=== PATIENT | female | born 1945 | race Caucasian/White ===

== ENCOUNTER 2016-09-10 05:20 | Emergency (ER) | payer MEDICARE, MEDICAID ==
[2016-09-10] MEDS ORDERED: Ondansetron INJ* 2 MG/ML VIAL IV ONE (05:48)
[2016-09-10] MEDS ORDERED: NS 0.9% 1000 ML* 1,000 ML IV ONE (05:48)
[2016-09-10 06:05] LABS: Hematocrit 44 % (35-47); Hemoglobin 14.6 g/dl (12.0-16.0); Mean Corpuscular HGB Conc 33 g/dl (31-36); Mean Corpuscular Hemoglobin 31 pg (27-31); Mean Corpuscular Volume 93 fL (80-97); Mean Platelet Volume 10 um3 (7.4-10.4); Red Blood Count 4.76 10^6/ul (4.0-5.4); Red Cell Distribution Width 13 % (10.5-15); White Blood Count 7.1 10^3/ul (3.5-10.8)
[2016-09-10 06:17] LABS: Albumin 4.1 g/dL (3.2-5.2); C Reactive Protein 21.96 mg/L (< 5.00); Calcium 9.9 mg/dL (8.6-10.3); EGFR African American 70.1 (>60); EGFR Non-African American 54.5 (>60); Globulin 3.4 g/dL (2-4); Magnesium 1.1 mg/dL (1.9-2.7); Total Bilirubin 1.1 mg/dL (0.2-1.0); Total Protein 7.5 g/dL (6.4-8.9)
[2016-09-10] MEDS ORDERED: Magnesium Sulfate 2 GM IV* 2 GM/50 ML BAG IVPB ONE (06:19)
--- NOTE | 2016-09-10 06:33 | ED ---
dominga Naidu Timothy, scribed for Alo Worrell MD on 09/10/16 at 0535 . HPI Cardiac - HPI Summary HPI Summary: Marta Flores is a 71 yo female presenting to [facility] with high blood pressure (208/ 100) and vomiting since 2330 09/09/16. She states she only feels nauseous when she is diaphoretic. She had diarrhea 1 week ago. She denies any current pain. She was admistered metoprolol at 0200 this morning. Her MHx includes CVA 2004, hemiplegia, hemiparesis, DMII, HTN, HLD - History of Current Complaint Stated Complaint: HIGH BLOOD PRESSURE/VOMITING Time Seen by Provider: 09/10/16 05:45 Hx Obtained From: Patient Onset/Duration: Started Hours Ago, Still Present Time of Onset: 23:30 - 09/09/16 Timing: Constant Initial Severity: Moderate Current Severity: Moderate Pain Intensity: 0 Pain Scale Used: 0-10 Numeric Associated Signs and Symptoms: Positive: Diaphoresis, Vomiting, Other: - high blood pressure, diarrhea 1 week ago - Allergy/Home Medications Allergies/Adverse Reactions: Allergies Allergy/AdvReac Type Severity Reaction Status Date / Time Rosuvastatin [From Crestor] Allergy Muscle Ache Verified 09/10/16 05:29 PMH/Surg Hx/FS Hx/Imm Hx Endocrine/Hematology History: Reports: Hx Diabetes - II Cardiovascular History: Reports: Hx Hypercholesterolemia, Hx Hypertension Neurological History: Reports: Hx CVA, Other Neuro Impairments/Disorders - hemiplegia, hemiparesis - Cancer History Hx Chemotherapy: No Hx Radiation Therapy: No Infectious Disease History: No Infectious Disease History: Denies: Traveled Outside the [place] in Last 30 Days - Family History Known Family History: Positive: Cardiac Disease, Hypertension, Diabetes Review of Systems Positive: Skin Diaphoresis Eyes: Negative ENT: Negative Cardiovascular: Other - high blood pressure Respiratory: Negative Positive: Vomiting, Diarrhea - 1 week ago resolved, Nausea Genitourinary: Negative Musculoskeletal: Negative Skin: Negative Neurological: Negative Psychological: Normal All Other Systems Reviewed And Are Negative: Yes Physical Exam Triage Information Reviewed: Yes Vital Signs On Initial Exam: Initial Vitals Temp Pulse Resp BP Pulse Ox 99.5 F 90 16 208/100 96 09/10/16 05:20 09/10/16 05:20 09/10/16 05:20 09/10/16 05:20 09/10/16 05:20 Vital Signs Reviewed: Yes Appearance: Positive: Well-Appearing, No Pain Distress Skin: Positive: Warm Head/Face: Positive: Normal Head/Face Inspection Eyes: Positive: JULIANNA ENT: Positive: Hearing grossly normal Neck: Positive: Supple Respiratory/Lung Sounds: Positive: Breath Sounds Present Cardiovascular: Positive: RRR Abdomen Description: Positive: Nontender, Soft Bowel Sounds: Positive: Present Musculoskeletal: Positive: Strength/ROM Intact Neurological: Positive: Alert, Oriented to Person Place, Time, Normal Gait Psychiatric: Positive: Normal Diagnostics - Vital Signs Vital Signs Temp Pulse Resp BP Pulse Ox 09/10/16 05:20 99.5 F 90 16 208/100 96 - Laboratory Lab Results: Lab Results 09/10/16 09/10/16 09/10/16 Range/Units 05:45 05:45 05:45 WBC 7.1 (3.5-10.8) 10^3/ul RBC 4.76 (4.0-5.4) 10^6/ul Hgb 14.6 (12.0-16.0) g/dl Hct 44 (35-47) % MCV 93 (80-97) fL MCH 31 (27-31) pg MCHC 33 (31-36) g/dl RDW 13 (10.5-15) % Plt Count 272 (150-450) 10^3/ul MPV 10 (7.4-10.4) um3 Neut % (Auto) 93.3 H (38-83) % Lymph % (Auto) 5.1 L (25-47) % [place] % (Auto) 0.7 L (1-9) % Eos % (Auto) 0 (0-6) % Baso % (Auto) 0.9 (0-2) % Absolute Neuts (auto) 6.6 (1.5-7.7) 10^3/ul Absolute Lymphs (auto) 0.4 L (1.0-4.8) 10^3/ul Absolute Monos (auto) 0 (0-0.8) 10^3/ul Absolute Eos (auto) 0 (0-0.6) 10^3/ul Absolute Basos (auto) 0.1 (0-0.2) 10^3/ul Absolute Nucleated RBC 0.01 10^3/ul Nucleated RBC % 0.1 Sodium 137 (133-145) mmol/L Potassium 4.0 (3.5-5.0) mmol/L Chloride 102 (101-111) mmol/L Carbon Dioxide 19 L (22-32) mmol/L Anion Gap 16 H (2-11) mmol/L BUN 20 (6-24) mg/dL Creatinine 1.00 H (0.51-0.95) mg/dL Est GFR ( Amer) 70.1 (>60) Est GFR (Non-Af Amer) 54.5 (>60) BUN/Creatinine Ratio 20.0 (8-20) Glucose 290 H (70-100) mg/dL Lactic Acid 7.1 H* (0.5-2.0) mmol/L Calcium 9.9 (8.6-10.3) mg/dL Magnesium 1.1 L (1.9-2.7) mg/dL Total Bilirubin 1.10 H (0.2-1.0) mg/dL AST 18 (13-39) U/L ALT 19 (7-52) U/L Alkaline Phosphatase 120 H (34-104) U/L C-Reactive Protein 21.96 H (< 5.00) mg/L Total Protein 7.5 (6.4-8.9) g/dL Albumin 4.1 (3.2-5.2) g/dL Globulin 3.4 (2-4) g/dL Albumin/Globulin Ratio 1.2 (1-3) Lipase 28 (11.0-82.0) U/L Result Diagrams: 09/10/16 05:45 09/10/16 05:45 Lab Statement: Any lab studies that have been ordered have been reviewed, and results considered in the medical decision making process. - EKG 0559 Cardiac Rate: Tachycardia - 105 BPM EKG Interpretation: Sinus tachycardia @ 105 BPM Disposition - Course Assessment/Plan: Marta Flores is a 71 yo female presenting to [facility] with BP of 208/100 and vomiting since 222909/09/16. In the ED course she received IV fluids , magneisum sulfate, and zofran for nausea control. Her EKG suggests tachycardia. She will be signed out to Dr. Pearson pending further lab results. Discharge - Discharge Plan Condition: Stable Disposition: OTHER Discharge Disposition Comment: signed out to Dr. Pearson pending further lab results. The documentation as recorded by the dominga sanderson Timothy accurately reflects the service I personally performed and the decisions made by me, Alo Worrell MD.
[2016-09-10] MEDS ORDERED: Losartan TAB* 25 MG PO ONE (08:07)
--- NOTE | 2016-09-10 10:04 | RAD ---
HISTORY: Shortness of breath COMPARISONS: November 10, 2008 VIEWS:1: Single frontal portable view of the chest at 9:45 AM FINDINGS: LINES AND TUBES: None. CARDIOMEDIASTINAL SILHOUETTE: The cardiomediastinal silhouette is normal for portable technique. PLEURA: The costophrenic angles are sharp. No pleural abnormalities are noted. LUNG PARENCHYMA: The lungs are clear. ABDOMEN: The upper abdomen is clear. There is no subphrenic gas. BONES AND SOFT TISSUES: There is remote posttraumatic change to the left hemithorax. IMPRESSION: NO ACTIVE CARDIOPULMONARY DISEASE.
[2016-09-10 11:37] VITALS: BP 124/73
--- NOTE | 2016-09-10 14:43 | CONS ---
HOSPITAL MEDICINE CONSULTATION: DATE OF CONSULTATION: 09/10/16 - EMERGENCY DEPT ATTENDING PHYSICIAN: Dr. Bessy Spicer (dictation provided by Irene Conteh NP) CHIEF COMPLAINT: Nausea and vomiting. HISTORY OF PRESENT ILLNESS: Ms. Flores is a 71-year-old female with a past medical history of CVA with left-sided hemiplegia, type 2 diabetes which is insulin dependent, and hypertension who presents to the hospital with report of [facility]. Ms. Flores states she has been in her normal state of health with no acute complaints. She was feeling well yesterday during the day; however, at about 11 o'clock last night, she had developed sudden onset of nausea and vomiting. She ultimately vomited three times. She is DNR/DNI and is comfort care only measures at the [facility], however, her MOLST form does indicate that she would like to be sent to the hospital if her symptoms are uncontrolled and therefore she was sent to the emergency room for evaluation. In the emergency room, Ms. Flores's lab showed that she had a lactic acidosis of 7.1. She had no leukocytosis, no fever. Her vitals are stable. Her CRP was only 21.96. The patient has had no further nausea and vomiting since arrival. She was given one liter of fluids and her lactic acid was rechecked and found to be 4.3. The patient is feeling well now; however, it was noted that the patient had a new O2 requirement. The patient's O2 saturation was noted to be 89% on room air. She had responded well to 2 L nasal cannula. The patient denies any cough, chest pain, shortness of breath. PAST MEDICAL HISTORY: 1. Left hemiplegia secondary to CVA. 2. Type 2 diabetes, insulin dependent. 3. Hypertension. 4. Hyperlipidemia. MEDICATIONS: I do not have dosages, but medications are: 1. Tylenol. 2. Levemir insulin. 3. Lipitor. 4. Loratadine. 5. Losartan. 6. Plavix. 7. Tizanidine. 8. Voltaren. ALLERGIES: To ROSUVASTATIN. FAMILY HISTORY: Reviewed and noncontributory. SOCIAL HISTORY: No report of alcohol, tobacco, or drug use. The patient lives at [facility]. REVIEW OF SYSTEMS: A 14-point review of systems was completed with Ms. Flores and all those not mentioned above were negative. PHYSICAL EXAMINATION: Vital Signs: Temperature 99.5, heart rate 90, respiratory rate 26, O2 saturation 94% on room air, blood pressure 148/73. General: Ms. Flores is sitting in the bed. She is in no acute distress. She is calm and cooperative with my exam. Neuro: She is alert. She is oriented x3. She has strong movement at the right upper and lower extremity, none noted at the left upper and lower extremity. Face is symmetrical. Heart: S1, S2. No murmur, rub, or gallop and regular. Lungs have scattered inspiratory crackles but good aeration, no accessory muscle use. The abdomen is soft, nontender with bowel sounds positive x4. Extremities: No cyanosis or edema. Skin is intact. DIAGNOSTIC STUDIES/LAB DATA: Sodium 137, potassium 4.0, chloride 102, serum bicarbonate 19, BUN 20, creatinine 1.0, glucose 290, lactic acid 7.1 at 5:45 a.m., rechecked at 8:28 a.m. and was 4.3. CRP is 21.96. Chest x-ray shows no acute cardiopulmonary process. EKG shows sinus tachycardia with heart rate of approximately 100. ASSESSMENT: Ms. Flores is a 71-year-old female with a past medical history of diabetes, left hemiplegia after cerebrovascular accident, and hypertension who presents today to the hospital with sudden onset of nausea, vomiting, and diarrhea. Our recommendations are as follows: 1. Nausea and vomiting: The patient is asymptomatic now and feeling well. She has had no further nausea and vomiting since arrival. She did have an elevated lactic acid, but this has improved with IV hydration. 2. Hypoxia: The patient was noted to need 2 L nasal cannula here in the emergency room today. I had discussed with the patient that she does continue to want to be comfort care. She says that she noticed there is no difference with the oxygen on or off. I therefore think there is no need for oxygen for her as long as she remains comfortable without it. No further workup indicated. 3. Diabetes: Continue home medications. 4. Hypertension: Continue home medications. 5. Disposition: I recommended to that patient be discharged back to [facility] to continue comfort care now that she is feeling better. TIME SPENT: Approximately 45 minutes were spent in the consultation of this patient, more than half time spent with her at the bedside reviewing the events leading up to this hospitalization, performing the physical examination, and reviewing the plan of care. IRENE CONTEH NP CC: Providers at [facility]* [id number]/CPS #: [id number] SOL
--- NOTE | 2016-09-11 09:32 | ED ---
I, Mian Bowers, scribed for Sourav Pearson MD on 09/10/16 at 1032 . Progress - Progress Note Progress Note: Signout pt from Dr. Worrell. Pending disposition. Ms. Flores felt better after treatment and W/U here. I was worried because she could not keep her SPO2 above 90% here without O2 and her RR was often in the 30 's. The hospitalist consulted on her and she did not want O2 at the [facility] and wanted to go back so she was D/C'd in guarded condition with a diagnosis of vomiting and diarrhea. Course/Dx - Diagnoses Provider Diagnoses: Vomiting, Diarrhea - Provider Notifications Discussed Care Of Patient With: Bessy Spicer - Dr. Spicer (hospitalist) at 1031. The documentation as recorded by the Robinson sanderson Benjamin accurately reflects the service I personally performed and the decisions made by me, Sourav Pearson MD.
== END 2016-09-10 13:15 ==
LOC: ED 05:20
DX: R11.10 Vomiting, unspecified (principal); R19.7 Diarrhea, unspecified; I10 Essential (primary) hypertension; E11.9 Type 2 diabetes mellitus without complications; E78.00 Pure hypercholesterolemia, unspecified; Z86.73 Personal history of transient ischemic attack (TIA), and cerebral infarction without residual deficits; Z88.8 Allergy status to other drugs, medicaments and biological substances
CPT/HCPCS: 36415; 71010; 80053; 83605; 83690; 83735; 85025; 86140; 93005; 96361; 96365; 96375; 99282; A9270-GY; J2405

== ENCOUNTER 2016-09-13 16:29 | Emergency (ER) | payer MEDICARE, OTHER ==
[2016-09-13] MEDS ORDERED: NS 0.9% 1000 ML* 2,000 ML IV ONE (16:54)
[2016-09-13] MEDS ORDERED: Albuterol/Ipratropium NEB.SOL* Albuterol 2.5 MG/Ipratropium 0.5 MG 3 ML INH ONE (16:54)
[2016-09-13 17:55] VITALS: BP 39/23
--- NOTE | 2016-09-13 18:49 | ED ---
Janet Naidu Alfonso, scribed for Roshan Keller MD on 09/13/16 at 1654 . Shortness of Breath - HPI Summary HPI Summary: This patient is a 71 y.o. F BIBA with [facility] presenting with severe SOB since waking up this morning. She reports chills, sweating and vomiting yesterday. She denies coughing, wheezing, and chest pain. PMHx includes diabetes , HTN, HLD, and pneumonia. No PMHx of COPD. DNR and DNI on record reviewed with patient, and she confirms. - History of Current Complaint Chief Complaint: EDShortnessOfBreath Time Seen by Provider: 09/13/16 16:40 Hx Obtained From: Patient Onset/Duration: Gradual Onset, Lasting Hours - Since awaking, Still Present Current Severity: Severe Dyspnea At: Rest - Allergy/Home Medications Allergies/Adverse Reactions: Allergies Allergy/AdvReac Type Severity Reaction Status Date / Time Rosuvastatin [From Crestor] Allergy Muscle Ache Verified 09/10/16 05:29 PMH/Surg Hx/FS Hx/Imm Hx Endocrine/Hematology History: Reports: Hx Diabetes - II Cardiovascular History: Reports: Hx Hypercholesterolemia, Hx Hypertension Neurological History: Reports: Hx CVA, Other Neuro Impairments/Disorders - hemiplegia, hemiparesis - Cancer History Hx Chemotherapy: No Hx Radiation Therapy: No Infectious Disease History: Denies: Traveled Outside the [place] in Last 30 Days - Family History Known Family History: Positive: Cardiac Disease, Hypertension, Diabetes - Social History Alcohol Use: None Substance Use Type: Reports: None Smoking Status (MU): Never Smoked Tobacco Review of Systems Positive: Chills, Skin Diaphoresis Negative: Chest Pain Positive: Shortness Of Breath. Negative: Cough, Other - Wheezing Positive: Vomiting All Other Systems Reviewed And Are Negative: Yes Physical Exam - Summary Physical Exam Summary: The patient is well-nourished in no acute distress and in no acute pain. The skin is warm and dry and skin color reflects adequate perfusion. HEENT: The head is normocephalic and atraumatic. The pupils are equal and reactive. The conjunctivae are clear and without drainage. Nares are patent and without drainage. Mouth reveals dry mucous membranes and the throat is without erythema and exudate. The external ears are intact. The ear canals are patent and without drainage. The tympanic membranes are intact. Neck is supple with full range of motion and non-tender. There are no carotid bruits. There is no neck vein distension. Respiratory: Chest is non-tender. Lungs are clear to auscultation and breath sounds are symmetrical and equal. Trunk is mottle. Cardiovascular: Hear is regular rate and rhythm. There is no murmur or rub auscultated. There is no peripheral edema and pulses are symmetrical and equal. 3 second capillary refills. Abdomen: The abdomen is obese soft and non-tender. There are normal bowel sounds heard in all four quadrants and there is no organomegaly palpated. Musculoskeletal: There is no back pain noted. Extremities are non-tender with full range of motion. There is good capillary refill. There is no peripheral edema or calf tenderness elicited. Neurological: Patient is alert and oriented to person, place and time. The patient has symmetrical motor strength in all four extremities. Cranial nerves are grossly intact. Deep tendon reflexes are symmetrical and equal in all four extremities. Psychiatric: The patient has an appropriate affect and does not exhibit any anxiety or depression. Triage Information Reviewed: Yes Vital Signs On Initial Exam: Initial Vitals Temp Pulse Resp BP Pulse Ox 96.9 F 101 40 134/115 84 09/13/16 16:43 09/13/16 16:43 09/13/16 16:43 09/13/16 16:43 09/13/16 16:43 Vital Signs Reviewed: Yes Diagnostics - Vital Signs Vital Signs Temp Pulse Resp BP Pulse Ox 09/13/16 17:07 40 19 39/23 83 09/13/16 17:00 27 09/13/16 16:49 65 30 60 09/13/16 16:45 96.9 F 101 40 134/115 84 09/13/16 16:43 96.9 F 101 40 134/115 84 - Laboratory Lab Statement: Any lab studies that have been ordered have been reviewed, and results considered in the medical decision making process. - EKG 1645 EKG Rhythm: Sinus Rhythm EKG Interpretation: Poor R wave progression, Old inferior wall [place] EKG Comparison: No Significant Change Re-Evaluation - Re-Evaluation First Eval Re-Evaluation Time: 17:09 - DNR, DNI reconfirmed with the patient. Patient became apneic on 2 liters of O2 and become asystolic at 17:15 Change: Worse Comment: DNR, DNI reconfirmed with the patient. Patient became apneic on Vapotherm. pt become less responsive. pt's heart rate, respiratoy rate and blood pressure decreased and with the pt becoming asystolic at 17:15. pt had no pulse. heart sound were not present. pt had cyanosis of her extremities. pt was pronounced at 17:15. Course/Dx - Course Assessment/Plan: Pt came in with SOB since this morning. DNR, DNI reconfirmed with the patient. PMHx of diabetes, HLD, HTN. Upon reexamination, pt was noted with mottled trunck. At 17:15 patient was noted apneic and asystolic on 2 liter O2, and pronounced . [employer] has been consulted-Dr. Singh. the pt was released to the [facility] [place]. certificate was signed with cause of as an acute myocardial infarct. Tawana Bhatti, pt's daughter, was notified at . Explained of mother. She specified [facility] as her preferred service home. pt was seen in the ED on September 10, 2016. pt had hospitalist consult and was discherged to home. - Diagnoses Differential Diagnosis/HQI/PQRI: Positive: IL, Pneumonia, Pulmonary Embolism, Other - dm, hypertension, cva, obesity Provider Diagnoses: Acute respiratory distress, due to respiratory failure - Physician Notifications Discussed Care of Patient With: Alok Singh - Notification of . certification will be signed. Time Discussed With Above Provider: 17:25 - Critical Care Time Critical Care Time: 30-74 min - 30 minutes Discharge - Discharge Plan Condition: Disposition: Referrals: Non Staff,Doctor [Primary Care Provider] - The documentation as recorded by the Janet sanderson Alfonso accurately reflects the service I personally performed and the decisions made by me, Roshan Keller MD.
== END 2016-09-13 17:15 | disposition expired ==
LOC: ED 16:29
DX: R06.00 Dyspnea, unspecified (principal); J96.90 Respiratory failure, unspecified, unspecified whether with hypoxia or hypercapnia; R06.02 Shortness of breath; R11.10 Vomiting, unspecified; R68.83 Chills (without fever)
CPT/HCPCS: 93005; 99283